=== PATIENT | female | born 1960 | race Caucasian/White ===

== ENCOUNTER → 2018-08-07 | Outpatient (CLI) | payer MEDICARE, OTHER ==
[~2018-08-07] MED LIST: ALBU18HF; CLOP75TA19; DIPH25CA6; DIVA500T34; HYDR-1666; HYDR-845; HYDR2CRE; LORA-407; MONT10TA21; PANT40TA4; RISP2TAB93; SAME MEDS; SIMV20TA; THE300; ZOLP10TA; ambien; depakote
== END | disposition home or self-care (01) ==
LOC: RAD 15:38
PROVIDERS: ATTEND Internal Medicine
DX: M25.551 Pain in right hip (principal)
CPT/HCPCS: 73510

== ENCOUNTER → 2018-08-17 | Outpatient (CLI) | payer MEDICARE, OTHER | END | disposition home or self-care (01) | LOC: RAD 14:41 | PROVIDERS: ATTEND Internal Medicine | DX: A15.9 Respiratory tuberculosis unspecified (principal) | CPT/HCPCS: 71046 ==

== ENCOUNTER 2018-08-29 19:51 | Emergency (ER) | payer MEDICARE, OTHER ==
[~2018-08-29] VITALS: Ht 160 cm; Wt 92.1 kg
[2018-08-29 19:53] VITALS: Ht 160 cm; Wt 92.1 kg
--- NOTE | 2018-08-29 23:14 | ERD ---
ER Documentation Chief Complaint Chief Complaint L GREAT TOE PAIN S/P SMASHING TOE WITH GARAGE DOOR 2 DAYS AGO HPI 58-year-old female, presents to the emergency department, complaining of p ersistent pain in the left great toe after sustaining direct trauma with a garage door 2 days ago. The pain is dull, constant, 8/10. The patient is able to ambulate with mild limping. She denies distal weakness, numbness or tingling. ROS All systems reviewed and are negative except as per history of present illness. Medications Home Meds Active Scripts Front Wheel Walker* (Front Wheel Walker*) 1 Each Dme, EACH [facility] DIRECTED, #1 0 Refills Prov:KAYLENE GARCIA MD 08/30/18 Acetaminophen* (Tylenol*) 325 Mg Tablet, 2 TAB PO Q6 PRN for PAIN AND OR ELEV ATED TEMP, #20 TAB Prov:KAYLENE GARCIA MD 08/30/18 Ibuprofen* (Motrin*) 400 Mg Tab, 400 MG PO Q6H PRN for PAIN AND OR ELEVATED TEMP, #20 TAB Prov:KAYLENE GARCIA MD 08/30/18 Reported Medications [Same Meds] No Conflict Check 06/27/12 Diphenhydramine Hcl (Benadryl) 25 Mg Cap 12/12/11 Hydrocortisone (Dermolate Anti-Itch) 2 Gm Cream.gm. 12/12/11 Risperidone* (Risperdal*) 2 Mg Tablet 12/12/11 Divalproex Sodium (Depakote Er) 500 Mg Tab.sr.24h 12/12/11 Montelukast Sodium* (Singulair*) 10 Mg Tablet 12/12/11 Theophylline* (Nacho-Dur*) 300 Mg Tabsr 12/12/11 Clopidogrel Bisulfate (Plavix) 75 Mg Tablet 12/12/11 Pantoprazole* (Pantoprazole*) 40 Mg Tablet.dr 12/12/11 Loratadine (Claritin) 10 Mg Tablet 12/12/11 Hydroxyzine Hcl* (Atarax*) 50 Mg Tab 12/12/11 Albuterol Sulfate* (Ventolin HFA*) 18 Gm Hfa.aer.ad 12/12/11 Hydrocodone Bit/Acetaminophen (Vicodin 5/500 Tablet) 1 Tab Tablet 12/12/11 Zolpidem Tartrate* (Ambien*) 10 Mg Tablet 12/12/11 Simvastatin* (Zocor*) 20 Mg Tablet 12/12/11 ambien 06/02/10 depakote 06/02/10 Allergies Allergies: Coded Allergies: Diphenoxylate (Verified Allergy, Mild, 04/02/13) Erythromycin Base (Verified Allergy, Mild, 04/02/13) atropine (Verified Allergy, Mild, 04/02/13) Uncoded Allergies: [id number] (SULFA (SULFONAMIDE ANTIBIOTICS)) (Allergy, Mild, 06/02/10) PMhx/Soc History of Surgery: Yes (Hysterectomy at 36) Anesthesia Reaction: No Hx Neurological Disorder: Yes (SEIZURES) Hx Respiratory Disorders: Yes (COPD, EMPHYSEMA, ASTHMA) Hx Cardiac Disorders: No Hx Psychiatric Problems: No Hx Miscellaneous Medical Probl: Yes (CHRONIC BACK PAIN) Hx Alcohol Use: No Hx Substance Use: No Hx Tobacco Use: Yes (HX) Smoking Status: Former smoker Physical Exam Vitals Vital Signs Date Temp Pulse Resp B/P (MAP) Pulse Ox O2 O2 Flow FiO2 Time Delivery Rate 08/30/18 99 18 158/70 97 Room Air 01:10 (99) 08/29/18 97.0 104 18 159/74 97 19:53 (102) Physical Exam Const: No acute distress Head: Atraumatic Eyes: Normal Conjunctiva ENT: Normal External Ears, Nose and Mouth. Neck: Full range of motion. No meningismus. Resp: Clear to auscultation bilaterally Cardio: Regular rate and rhythm, no murmurs Abd: Soft, non tender, non distended. Normal bowel sounds Skin: No petechiae or rashes Back: No midline or flank tenderness Ext: Left foot: Great toe tender to palpation, with significant ecchymosis but no deformity, distal neurovascular exam intact. Neur: Awake and alert Psych: Normal Mood and Affect Results 24 hrs Patient: ORLANDO HASSAN : 1960 Age: 58 Sex: F [id number] DOS: 08/29/18 2324 Ordering MD: KAYLENE GARCIA MD Location: [facility]TE Room/Bed: PROCEDURE: XR Foot. CLINICAL INDICATION: 58 years of age, female. Pain. TECHNIQUE: Three views of the left foot. COMPARISON: None available. FINDINGS: There is an acute intra-articular corner fracture at the medial base of the distal phalanx of the great toe. The bone fragment measures 1 cm. Negative for significant displacement. Alignment of the interphalangeal joint is anatomic. No acute fractures are identified elsewhere in the foot. The remaining joints are anatomically aligned. There is a large bone spur at the base of the calcaneus. Negative for significant soft tissue swelling. Additional comment: None. IMPRESSION: Acute intra-articular corner fracture at the medial base of the distal phalanx of the great toe as described. Procedures/MDM Differential diagnosis considered include but not limited are: sprain/strain, ligament injury, fracture, dislocation, low suspicion for acute infectious process. Soft compartments, neurovascular exam grossly intact. Physical examination and clinical presentation consistent with left great toe fracture. During the ED course the patient received treatment with Orth O shoe presenting overall improvement of the symptoms. Splint evaluation: Type: Orth O shoe Location: Left lower extremity Position: good alignment in anatomical position Neurovascular intact Results and clinical impression discussed with patient who agrees with manag ement. The patient is stable to be treated outpatient and will be discharged home with recommendations for Ortho evaluation MARZENA, meanwhile, ice, rest and partial immobilization. NSAIDs 3 times daily for 5 days and close monitoring. The patient was instructed to follow up with the primary care provider in the next 48h. If symptoms persist, worsen or new symptoms develop, then patient should return to the ED immediately. Instructions explained and given to patient with acknowledgment and demonstrated understanding. Disclaimer: Inadvertent spelling and grammatical errors are likely due to EHR/dictation software use and do not reflect on the overall quality of patient care. Also, please note that the electronic time recorded on this note does not necessarily reflect the actual time of the patient encounter. Departure Diagnosis: Primary Impression: Fracture of left great toe Condition: Stable Additional Instructions: Thank you very much for allowing us to participate in your care. Your health and safety is our top priority at [facility]. Call your primary care doctor TOMORROW for an appointment during the next 2-4 days and bring all the information and medications prescribed. Have prescriptions filled and follow precisely the directions on the label. If the symptoms get worse and your provider is unavailable, return to the Emergency Department immediately. KAYLENE GARCIA MD Aug 29, 2018 23:14
[2018-08-30] MEDS ORDERED: ACET325T33 PO (00:17)
[2018-08-30] MEDS ORDERED: IBUP-1561 PO (00:17)
[2018-08-30] MEDS ORDERED: WALK1EAC23 MC (00:18)
[2018-08-30 01:10] VITALS: BP 158/70; PULSE 99; RESP 18
== END 2018-08-30 01:12 | disposition home or self-care (01) ==
LOC: FTE 19:51
DX: S92.422A Displaced fracture of distal phalanx of left great toe, initial encounter for closed fracture (principal); J45.909 Unspecified asthma, uncomplicated; W23.0XXA Caught, crushed, jammed, or pinched between moving objects, initial encounter; Y92.9 Unspecified place or not applicable; Z79.01 Long term (current) use of anticoagulants
CPT/HCPCS: 73630; 99283; L3260